=== PATIENT | male | born 1950 ===

== ENCOUNTER 2024-03-18 09:42 | Emergency (ER) | payer OTHER ==
[2024-03-18 11:09] VITALS: O2SAT 99
--- NOTE | 2024-03-18 11:18 | ERPHSYRPT ---
- History of Present Illness Time Seen by Provider: 03/18/24 11:07 Source: patient Exam Limitations: no limitations Patient Subjective Stated Complaint: Left eye vision issues twice in 2 weeks Triage Nursing Assessment: + Physician History: Pt states 2 weeks ago and yesterday he had 5 minutes of blindness in his left ey e; denies chest pain, shortness of air, weakness/numbness, fever; admits to headaches in the past 2 weeks. Allergies/Adverse Reactions: No Known Drug Allergies Allergy (Verified 10/03/14 10:06) Home Medications: Simvastatin 10 mg PO DAILY 10/03/14 [History] Lisinopril 10 mg [Zestril 10 MG] 10 mg PO BID 03/18/24 [History] Hx Tetanus, Diphtheria Vaccination/Date Given: Yes Hx Influenza Vaccination/Date Given: Yes Hx Pneumococcal Vaccination/Date Given: Yes Immunizations Up to Date: Yes Travel Risk - International Travel Have you traveled outside of the country in past 3 weeks: No - Emerging Infectious Disease Are you exhibiting symptoms associated with any current EIDs: No - Review of Systems Eyes: Other (temporary blindness in left eye) Respiratory: No Dyspnea Cardiac: No Chest Pain Abdominal/Gastrointestinal: No Abdominal Pain, No Nausea, No Vomiting, No Diarrhea Neurological: Headache - Past Medical History Pertinent Past Medical History: Yes Neurological History: No Pertinent History ENT History: No Pertinent History Cardiac History: No Pertinent History Respiratory History: No Pertinent History Endocrine Medical History: No Pertinent History Musculoskeletal History: Other GI Medical History: No Pertinent History History: No Pertinent History Psycho-Social History: No Pertinent History Male Reproductive Disorders: No Pertinent History Other Medical History: bone spurs on neck, had surgery to remove. THROAT - Past Surgical History Past Surgical History: Yes Neuro Surgical History: No Pertinent History Cardiac: No Pertinent History Respiratory: No Pertinent History Gastrointestinal: No Pertinent History Genitourinary: No Pertinent History Musculoskeletal: Orthopedic Surgery Male Surgical History: No Pertinent History Other Surgical History: bone spurs on neck, had surgery to remove. TRACH PLACEMENT. GTUBE PLACEMENT - Social History Smoking Status: Former smoker Exposure to second hand smoke: Yes Drug Use: none Patient Lives Alone: No - Social Determinants of Health Will the patient participate in the screening: Yes Do you worry about a steady place to live?: No Do you have any problems with any of the following?: No known problems In the past 12 months,have you had to go without utilities?: No Transportation Issues: No Has anyone in your support network made you feel unsafe?: No Have you or anyone in your house had to go without enough: No - Nursing Vital Signs Nursing Vital Signs: Initial Vital Signs Pulse Rate 58 L 03/18/24 11:06 Blood Pressure 184/88 03/18/24 11:06 O2 Sat by Pulse Oximetry 99 03/18/24 11:06 Pain Scale Pain Intensity 0 - Physical Exam General Appearance: alert Eye Exam: PERRL/EOMI Ears, Nose, Throat Exam: TMs normal, pharynx normal Neck Exam: normal inspection Respiratory Exam: lungs clear Cardiovascular Exam: normal heart sounds Gastrointestinal/Abdomen Exam: normal bowel sounds Extremity Exam: No pedal edema Neurologic Exam: alert, cooperative, sensation nml, No motor deficits Skin Exam: warm, dry SpO2 Interpretation: normal SpO2: 99 O2 Delivery: Room Air - Course Nursing assessment & vital signs reviewed: Yes EKG Interpreted by Me: RATE (62), Sinus Rhythm, Left [place] Deviation, Other (QTc = 418) - Radiology Exams Chest X-ray Interpretation: Discussed w/ radiologist (Nonacute chest with chronic features.) - CT Exams Head CT Interpretation: Discussed w/radiologist (Nonacute senile brain with remote lacunar infarct right thalamus. Paranasal sinus diserase. No acute intracranial abnormalities.) Ordered Tests: Active Orders 24 hr Category Date Time Status EKG-ER Only STAT Care 03/18/24 11:20 Active IV Insertion STAT Care 03/18/24 11:20 Active NPO (ED) STAT Care 03/18/24 11:18 Active CHEST 2 VIEWS (PA AND LAT) Stat Exams 03/18/24 11:21 Completed HEAD WITHOUT CONTRAST [CT] Stat Exams 03/18/24 11:17 Completed AMYLASE Stat Lab 03/18/24 12:05 Completed BMP/HFII Stat Lab 03/18/24 12:05 Completed CBC W DIFF Stat Lab 03/18/24 12:05 Completed LIPASE Stat Lab 03/18/24 12:05 Completed MAGNESIUM Stat Lab 03/18/24 12:05 Completed TROPONIN Q4H Lab 03/18/24 12:05 Completed TROPONIN Q4H Lab 03/18/24 15:30 Ordered TROPONIN Q4H Lab 03/18/24 19:30 Ordered UA W/RFX UR CULTURE Stat Lab 03/18/24 11:21 Completed Urine Triage Profile Stat Lab 03/18/24 11:21 Results Medication Summary Generic Name Dose Route Start Last Admin Trade Name Gilbert PRN Reason Stop Dose Admin Sodium Chloride 1,000 mls @ 100 mls/hr 03/18/24 11:30 03/18/24 11:45 Sodium Chloride 0.9% 1000 Ml IV 04/17/24 11:29 100 mls/hr .Q10H ANASTACIO Administration Ceftriaxone Sodium 1 gm in 100 mls @ 200 mls/hr 03/18/24 13:03 Rocephin 1 Gm / 100 Ml Nacl IV 03/18/24 13:32 STAT ONE Lab/Rad Data: Laboratory Result Diagrams 03/18/24 12:05 03/18/24 12:05 Laboratory Results 03/18/24 03/18/24 03/18/24 Range/Units 12:05 12:05 12:05 WBC 6.2 (4.23-9.07) x10^3/uL RBC 5.10 (4.63-6.08) x10^6/uL Hgb 15.1 (13.7-17.5) g/dL Hct 44.8 (40.1-51.0) % MCV 87.8 (79.0-92.2) fL MCH 29.6 (25.7-32.2) pg MCHC 33.7 (32.3-36.5) g/dL RDW 13.4 (11.6-14.4) % Plt Count 214 (163-337) x10^3/uL MPV 9.3 L (9.4-12.4) fL Gran % 71.1 H (34.0-67.9) % Immature Gran % (Auto) 0.3 (0.001-0.429) % Nucleat RBC Rel Count 0.0 (0.00-0.2) % Eos # (Auto) 0.20 (0.04-0.54) x10^3/uL Immature Gran # (Auto) 0.02 (0.001-0.031) x10^3u/L Absolute Lymphs (auto) 1.10 L (1.32-3.57) x10^3/uL Absolute Monos (auto) 0.41 (0.30-0.82) x10^3/uL Absolute Nucleated RBC 0.00 (0.00-0.012) x10^3u/L Lymphocytes % 17.7 L (21.8-53.1) % Monocytes % 6.6 (5.3-12.2) % Eosinophils % 3.2 (0.8-7.0) % Basophils % 1.1 (0.2-1.2) % Absolute Granulocytes 4.42 (1.78-5.38) x10^3/uL Basophils # 0.07 (0.01-0.08) x10^3/uL Sodium 139 (135-145) mmol/L Potassium 4.1 (3.5-5.1) mmol/L Chloride 108 H (98-107) mmol/L Carbon Dioxide 24 (22-30) mmol/L Anion Gap 12.2 (5-15) MEQ/L BUN 14 (9-20) mg/dL Creatinine 1.02 (0.66-1.25) mg/dL Estimated GFR 78.1 ML/MIN Glucose 99 (74-106) mg/dL Calcium 8.8 (8.4-10.2) mg/dL Magnesium 2.0 (1.6-2.3) mg/dL Total Bilirubin 0.80 (0.2-1.3) mg/dL Direct Bilirubin 0.1 (0.0-0.4) mg/dL AST 27 (17-59) U/L ALT 21 (0-50) U/L Alkaline Phosphatase 102 (38-126) U/L Troponin I < 0.012 (0.000-0.033) ng/mL Serum Total Protein 6.4 (6.3-8.2) g/dL Albumin 4.0 (3.5-5.0) g/dL Amylase 69 (30-110) U/L Lipase 95 (23-300) U/L Urine Color (Yellow) Urine Appearance (Clear) Urine pH (4.6-8.0) Ur Specific [place] (1.005-1.030) Urine Protein (Negative) Urine Glucose (UA) (Negative) mg/dL Urine Ketones (Negative) Urine Blood (Negative) Urine Nitrite (Negative) Urine Bilirubin (Negative) Urine Urobilinogen (0.2) mg/dL Ur Leukocyte Esterase (Negative) U Hyaline Cast (Auto) (0-2) /LPF Urine Microscopic RBC (0-5) /HPF Urine Microscopic WBC (0-5) /HPF Ur Epithelial Cells (None Seen) /HPF Urine Bacteria (None Seen) /HPF Urine Culture Reflexed (NO) Urine Opiates Level (NEGATIVE) Ur Methadone (NEGATIVE) Urine Barbiturates (NEGATIVE) Ur Phencyclidine (PCP) (NEGATIVE) Urine Amphetamine (NEGATIVE) U Benzodiazepine Level Urine Cocaine (NEGATIVE) Urine Marijuana (THC) (NEGATIVE) 03/18/24 03/18/24 Range/Units 11:21 11:21 WBC (4.23-9.07) x10^3/uL RBC (4.63-6.08) x10^6/uL Hgb (13.7-17.5) g/dL Hct (40.1-51.0) % MCV (79.0-92.2) fL MCH (25.7-32.2) pg MCHC (32.3-36.5) g/dL RDW (11.6-14.4) % Plt Count (163-337) x10^3/uL MPV (9.4-12.4) fL Gran % (34.0-67.9) % Immature Gran % (Auto) (0.001-0.429) % Nucleat RBC Rel Count (0.00-0.2) % Eos # (Auto) (0.04-0.54) x10^3/uL Immature Gran # (Auto) (0.001-0.031) x10^3u/L Absolute Lymphs (auto) (1.32-3.57) x10^3/uL Absolute Monos (auto) (0.30-0.82) x10^3/uL Absolute Nucleated RBC (0.00-0.012) x10^3u/L Lymphocytes % (21.8-53.1) % Monocytes % (5.3-12.2) % Eosinophils % (0.8-7.0) % Basophils % (0.2-1.2) % Absolute Granulocytes (1.78-5.38) x10^3/uL Basophils # (0.01-0.08) x10^3/uL Sodium (135-145) mmol/L Potassium (3.5-5.1) mmol/L Chloride (98-107) mmol/L Carbon Dioxide (22-30) mmol/L Anion Gap (5-15) MEQ/L BUN (9-20) mg/dL Creatinine (0.66-1.25) mg/dL Estimated GFR ML/MIN Glucose (74-106) mg/dL Calcium (8.4-10.2) mg/dL Magnesium (1.6-2.3) mg/dL Total Bilirubin (0.2-1.3) mg/dL Direct Bilirubin (0.0-0.4) mg/dL AST (17-59) U/L ALT (0-50) U/L Alkaline Phosphatase (38-126) U/L Troponin I (0.000-0.033) ng/mL Serum Total Protein (6.3-8.2) g/dL Albumin (3.5-5.0) g/dL Amylase (30-110) U/L Lipase (23-300) U/L Urine Color Yellow (Yellow) Urine Appearance Clear (Clear) Urine pH 5.5 (4.6-8.0) Ur Specific [place] 1.025 (1.005-1.030) Urine Protein Trace A (Negative) Urine Glucose (UA) Negative (Negative) mg/dL Urine Ketones Negative (Negative) Urine Blood Negative (Negative) Urine Nitrite Negative (Negative) Urine Bilirubin Negative (Negative) Urine Urobilinogen 0.2 (0.2) mg/dL Ur Leukocyte Esterase Negative (Negative) U Hyaline Cast (Auto) NONE SEEN (0-2) /LPF Urine Microscopic RBC 0-2 (0-5) /HPF Urine Microscopic WBC 0-2 (0-5) /HPF Ur Epithelial Cells None Seen (None Seen) /HPF Urine Bacteria None Seen (None Seen) /HPF Urine Culture Reflexed NO (NO) Urine Opiates Level NEGATIVE (NEGATIVE) Ur Methadone NEGATIVE (NEGATIVE) Urine Barbiturates NEGATIVE (NEGATIVE) Ur Phencyclidine (PCP) NEGATIVE (NEGATIVE) Urine Amphetamine NEGATIVE (NEGATIVE) U Benzodiazepine Level Pending Urine Cocaine NEGATIVE (NEGATIVE) Urine Marijuana (THC) NEGATIVE (NEGATIVE) - Progress Progress: unchanged Counseled pt/family regarding: lab results, diagnosis, need for follow-up, rad results Medical Desision Making - Diagnostic Testing Diagnostic test were ordered, analyzed, and reviewed by me: Yes Radiological Interpretation: Discussed w/ radiologist - Departure Departure Disposition: Home Clinical Impression: Temporary blindness in left eye, Headaches, Sinusitis Condition: Stable Critical Care Time: No Referrals: HOSPITAL,'S [Primary Care Provider] - Follow up/PCP as directed Instructions: Headaches in adults Additional Instructions: Follow up with private doctor today. Follow up with Eye Doctor today. Prescriptions: Cefpodoxime Proxetil 200 mg [Vantin 200 mg] 200 mg PO BID #20 tablet
[2024-03-18 11:39] VITALS: TEMP 98
[2024-03-18] MEDS: Sodium Chloride 0.9% 1000 ML 1,000 ML IV SCH (11:45)
--- NOTE | 2024-03-18 12:30 | XRAY ---
Indication: Left eye blindness. Comparison: None PA/lateral chest hyperinflated and clear. Heart and mediastinal structures within normal limits. Incidental small mediastinal calcified nodes. Bony thorax intact with osteopenia, minimal degenerative changes, and lower cervical fusion hardware. Impression: Nonacute chest with chronic features.
--- NOTE | 2024-03-18 12:32 | XRAY ---
Indication: Temporary left eye blindness. Multiple contiguous axial images obtained through the head without contrast. Comparison: None Age-appropriate global atrophy and mild periventricular degenerative micro-ischemia bilaterally. Remote lacunar infarct right thalamus. No acute intracranial hemorrhage, abnormal extra-axial fluid collection, or mass effect. Fourth ventricle is midline without hydrocephalus. Bony calvarium intact. Moderate mucosal thickening both ethmoid and lesser degree right frontal/right maxillary sinuses. Moderate left maxillary sinus fluid leveling. Mastoid air cells are clear. Impression: Nonacute senile brain with remote lacunar infarct right thalamus. Paranasal sinus disease. No acute intracranial abnormalities.
[2024-03-18 12:35] LABS: Absolute Neutrophil Ct (ANC) 4.42 x10^3/uL (1.78-5.38); BASOPHIL % 1.1 % (0.2-1.2); Basophil (Absolute #) 0.07 x10^3/uL (0.01-0.08); Eosinophil % 3.2 % (0.8-7.0); Hematocrit 44.8 % (40.1-51.0); Hemoglobin 15.1 g/dL (13.7-17.5); IMMATURE GRAN # 0.02 x10^3u/L (0.001-0.031); IMMATURE GRAN % 0.3 % (0.001-0.429); Lymphocytes % 17.7 % (21.8-53.1); Mean Cell Volume 87.8 fL (79.0-92.2); Mean Corpuscular Hemoglobin 29.6 pg (25.7-32.2); Mean Corpuscular Hgb Concent. 33.7 g/dL (32.3-36.5); Mean Platelet Volume 9.3 fL (9.4-12.4); Monocyte (Absolute #) 0.41 x10^3/uL (0.30-0.82); Monocytes % 6.6 % (5.3-12.2); Neutrophil % 71.1 % (34.0-67.9); Platelet Count 214 x10^3/uL (163-337); Red Cell Distribution Width 13.4 % (11.6-14.4); White Blood Count 6.2 x10^3/uL (4.23-9.07)
[2024-03-18 12:38] LABS: Appearance Clear (Clear); Bacteria None Seen /HPF (None Seen); Bilirubin Negative (Negative); Blood Negative (Negative); Epithelial Cells None Seen /HPF (None Seen); Glucose, Urine Negative (Negative); Hyaline Casts NONE SEEN /LPF (0-2); Ketones Negative (Negative); Leukocyte Esterase Negative (Negative); Nitrite Negative (Negative); Ph 5.5 (4.6-8.0); Protein,Urine Dip Trace (Negative); RBC 0-2 /HPF (0-5); Specific Gravity 1.025 (1.005-1.030); Urobilinogen 0.2 mg/dL (0.2); WBC 0-2 /HPF (0-5)
[2024-03-18 12:41] LABS: ANION GAP 12.2 MEQ/L (5-15); BILIRUBIN,TOTAL 0.8 mg/dL (0.2-1.3); Calcium 8.8 mg/dL (8.4-10.2); Creatinine 1 1.02 mg/dL (0.66-1.25); Direct Bilirubin 0.1 mg/dL (0.0-0.4); EST GLOMERULAR FILTRATION RATE 78.1 ML/MIN; Potassium 4.1 mmol/L (3.5-5.1); Total Protein 6.4 g/dL (6.3-8.2)
[2024-03-18 12:47] VITALS: BP 139/72; PULSE 63; RESP 18
[2024-03-18 12:54] LABS: Amphetamine,Urine NEGATIVE (NEGATIVE); Barbiturate,Urine NEGATIVE (NEGATIVE); Cocaine,Urine NEGATIVE (NEGATIVE); Methadone,Urine NEGATIVE (NEGATIVE); Opiate,Urine NEGATIVE (NEGATIVE); PCP,Urine NEGATIVE (NEGATIVE); THC,Urine NEGATIVE (NEGATIVE)
[2024-03-18 12:59] LABS: ADD URINE CULTURE? NO (NO)
[2024-03-18] MEDS ORDERED: ROCEPHIN 1 GM / 100 ML NaCl 1 GM/100 ML IVPB IV ONE (13:35)
[2024-03-18] MEDS: ROCEPHIN 1 GM / 100 ML NaCl 1 GM/100 ML IVPB IV ONE (13:40)
[2024-03-21 18:58] LABS: Benzodiazepines Negative ng/mL (Cutoff=300)
== END 2024-03-18 14:21 | disposition home or self-care (01) ==
LOC: ED 09:42
DX: H53.122 Transient visual loss, left eye (principal); R51.9 Headache, unspecified; J32.9 Chronic sinusitis, unspecified; Z79.899 Other long term (current) drug therapy
CPT/HCPCS: 36415; 70450; 71046; 80048; 80076; 80307; 81001; 82150; 83690; 83735; 84484; 85025; 93005; 96365; 99284; J0696